=== PATIENT | male | born 1965 | race Caucasian/White ===

== ENCOUNTER 2024-08-31 23:23 | Emergency (ER) | payer SELFPAY ==
[~2024-08-31] VITALS: Ht 180.3 cm; Wt 99.8 kg
[~2024-08-31 23:23] MED LIST: NAPROXEN500 MG PO; TRAMADOL HYDROC50 M1 PO
[2024-08-31] MEDS ORDERED: MORPHINE SULFATE 4 MG/ML VIAL IV STA (23:36)
[2024-08-31] MEDS ORDERED: SODIUM CHLORIDE 0.9% 1,000 ML IV STA (23:36)
[2024-08-31] MEDS ORDERED: TAMSULOSIN HCL 0.4 MG CAP PO STA (23:36)
[2024-08-31] MEDS ORDERED: PROMETHAZINE HCL 25 MG/ML AMP IV ONE (23:40)
[2024-08-31] MEDS ORDERED: KETOROLAC TROMETHAMINE 30 MG/ML SDV IV ONE (23:40)
[2024-08-31 23:57] LABS: BASO% 0.1 % (0-3); EOS% 1.7 % (0-8); HEMATOCRIT 43.2 % (39.0-50.0); HEMOGLOBIN 13.6 g/dl (14.0-18.0); IMMATURE GRANULOCYTES 0.6 % (0.0-5.0); LYMPH% 30.7 % (15-41); MEAN CORPUSCULAR HGB 30.8 pG CALC (26.0-32.0); MEAN CORPUSCULAR HGB CONC 31.5 g/dL CAL (32.0-36.0); MONO% 2.7 % (2-13); NEUT# 5.13 thou/uL (1.82-7.42); NEUT% 64.2 % (42-76); RED BLOOD COUNT 4.41 mill/uL (4.70-6.10); RED CELL DISTRI WIDTH 13.3 % (11.5-15.5)
[2024-09-01 00:07] LABS: ALBUMIN 3.9 g/dL (3.2-5.0); CREATININE 0.8 mg/dL (0.7-1.3); POTASSIUM 3.5 mmol/l (3.5-5.1); TOTAL PROTEIN 7.4 g/dL (6.3-8.2)
[2024-09-01 00:08] LABS: BILIRUBIN, TOTAL 0.4 mg/dL (0.2-1.3)
[2024-09-01 00:44] LABS: URINE BILIRUBIN - DIPSTICK Negative (NEGATIVE); URINE BLOOD DIPSTICK Negative (NEGATIVE); URINE GLUCOSE - DIPSTICK Negative (NEGATIVE); URINE KETONE Negative (NEGATIVE); URINE LEUK ESTERASE Negative (NEGATIVE); URINE NITRITE - DIPSTICK Negative (Negative); URINE PROTEIN - DIPSTICK Negative (NEG-TRACE); URINE SPECIFIC GRAVITY >=1.030; URINE UROBILINOGEN - DIPSTICK 0.2 E.U./dL (0.2)
[2024-09-01 00:51] LABS: URINE COLOR Yellow
[2024-09-01] MEDS ORDERED: Acetaminophen 300 MG/Codeine 30 MG/COMBO PO ONE (02:30)
[2024-09-01 03:31] VITALS: BP 173/104
== END 2024-09-01 03:38 | disposition home or self-care (01) | DRG 552 ==
LOC: ED 23:23
PROVIDERS: Family Medicine
DX: M54.50 Low back pain, unspecified (principal); I10 Essential (primary) hypertension; Z72.0 Tobacco use
CPT/HCPCS: Q9967